=== PATIENT | female | born 1960 | race Caucasian/White ===

== ENCOUNTER 2017-02-16 11:44 | Inpatient (IN) | payer MEDICARE ==
[~2017-02-16] VITALS: Ht 165.1 cm; Wt 84.4 kg
[2017-02-16] MEDS ORDERED: GLUCOPHAGE500 MG PO (13:30)
[2017-02-16] MEDS ORDERED: GLUCOPHAGE XR500 MG PO (13:30)
[2017-02-16] MEDS ORDERED: TRAZODONE HCL50 MG PO (13:31)
[2017-02-16] MEDS ORDERED: ZOCOR20 MG PO (13:31)
[2017-02-16] MEDS ORDERED: PRINIVIL10 MG PO (13:31)
[2017-02-16] MEDS ORDERED: INVOKANA100 MG PO (13:32)
[2017-02-16] MEDS ORDERED: NEXIUM40 MG PO (13:32)
[2017-02-16] MEDS ORDERED: TRINTELLIX PO (13:53)
[2017-02-16] MEDS ORDERED: LAMICTAL200 MG PO (13:54)
[2017-02-16] MEDS ORDERED: ZETIA10 MG PO (13:54)
[2017-02-16] MEDS ORDERED: HYDROCODON-ACE1 EAC6 PO (13:55)
[2017-02-16] MEDS ORDERED: ASPIRIN81 MG PO (13:56)
[2017-02-17] MEDS ORDERED: XANAX0.5 MG PO (11:05)
[2017-02-17] MEDS ORDERED: FLEXERIL10 MG PO (11:05)
[2017-02-17] MEDS ORDERED: MOTRIN800 MG PO (11:06)
[2017-02-17] MEDS ORDERED: DEXTROAMP-AMPHE30 MG PO (11:10)
[2017-02-17] MEDS ORDERED: SYMBICORT 80-46.9 GM INH (11:10)
[2017-02-17] MEDS ORDERED: REGLAN10 M1 PO (11:11)
[2017-02-17] MEDS ORDERED: FISH OIL1 GM PO (11:11)
[2017-02-17] MEDS ORDERED: MOVANTIK25 MG PO (11:11)
[2017-02-17] MEDS ORDERED: GLUCOPHAGE500 MG PO ×2 (11:12)
[2017-02-18] MEDS ORDERED: LEVAQUIN500 MG PO (09:20)
== END 2017-02-18 09:38 | disposition short-term general hospital (02) | DRG 872 ==
LOC: ER 11:44 → IP 16:00 → OBS 16:00 → ER 16:00 → IP 18:36
PROVIDERS: ADMIT Family Medicine
DX: A41.9 Sepsis, unspecified organism (principal); K92.2 Gastrointestinal hemorrhage, unspecified; I95.2 Hypotension due to drugs; T46.5X5A Adverse effect of other antihypertensive drugs, initial encounter; K59.03 Drug induced constipation; T40.605A Adverse effect of unspecified narcotics, initial encounter; E11.9 Type 2 diabetes mellitus without complications; Z87.891 Personal history of nicotine dependence; I10 Essential (primary) hypertension
CPT/HCPCS: G0378; G0477; J0696; J1650; J1956; J2405